=== PATIENT | female | born 1995 | race Caucasian/White ===

== ENCOUNTER → 2023-08-22 10:41 | Outpatient (CLI) | payer BC, SELFPAY ==
--- NOTE | 2023-08-22 10:45 | DI.RAD.S_ITS ---
PROCEDURE: XR ANKLE LT MIN 3V INDICATIONS: Ankle strain TECHNIQUE: 3 views of the ankle were acquired. COMPARISON: None. FINDINGS: Bones: No fractures or dislocations. Ankle mortise is normally aligned. No suspicious bony lesions. Soft tissues: Moderate tibiotalar joint effusion. Achilles tendon appears normal. Moderate swelling about the ankle. IMPRESSION: Moderate tibiotalar effusion. No displaced fracture. Dictated by: Nam Gillis M.D. on 08/22/2023 at 11:28 Approved by: Nam Gillis M.D. on 08/22/2023 at 11:29
== END ==
PROVIDERS: Referring Provider Nurse Practitioner Family; Visit Provider Nurse Practitioner Family
DX: S96.912A Strain of unspecified muscle and tendon at ankle and foot level, left foot, initial encounter (principal); M25.472 Effusion, left ankle; X58.XXXA Exposure to other specified factors, initial encounter
CPT/HCPCS: 73610